=== PATIENT | male | born 1975 | race Caucasian/White ===

== ENCOUNTER → 2020-05-23 02:45 | Outpatient (CLI) | payer BC, SELFPAY ==
[2020-05-23 21:05] LABS: SARS-CoV-2 RNA PCR Negative
== END ==
PROVIDERS: PCP Internal Medicine; Visit Provider Internal Medicine Gastroenterology
DX: Z01.812 Encounter for preprocedural laboratory examination (principal); Z20.822 Contact with and (suspected) exposure to COVID-19
CPT/HCPCS: C9803; U0003; U0005

== ENCOUNTER 2020-05-26 01:15 | Day surgery (SDC) | payer BC, SELFPAY ==
[2020-05-10 13:21] VITALS: BMI 31.6
[2020-05-26 06:47] VITALS: BP 150/103; PULSE 89; RESP 16; TEMP 36.2; O2SAT 100; BMI 33.6
[2020-05-26] MEDS: LACTATED RINGERS 1,000 ML 150 ML IV CONT (07:07)
[2020-05-26 07:08] LABS: Glucose Point of Care 120 (65-105)
--- NOTE | 2020-05-26 07:17 | PM.HPGS ---
History of Present Illness History of Present Illness Consent: Risks, benefits, and alternatives have been discussed and questions answered. Patient agrees to proceed with procedure. Chief complaint: GERD Narrative: Jitendra Ha is a 44 year old male he denies dysphagia but sometimes shortly after eating he will began coughing as though something had gone down the wrong way. at times he may be taking a drink of water and began coughing. He describes the cough is deep. He does not usually regurgitate food when this happens. This happens more often during the day than at night. He does not wake up choking. Several years ago he had an EGD and was told that his symptoms were due to blood pressure medication. However changes in his medication has not helped. He recently increased pantoprazole to twice a day but without any benefit. Review of Systems Review of Systems: All systems reviewed & are unremarkable except as noted in HPI and below PMFSH Past Medical History Medical History Diabetes Hypertension Family History Family History Other Diabetes mellitus Family history of arthritis Family history of malignant neoplasm Hypertension Social History Social History Smoking status: Never smoker Smoking end date: 03/11/02 Alcohol intake: current Substance use: never Substance use type: does not use Living arrangements: with family Gender identity (if verbalized by the patient): Male Spiritual care concerns: No Meds Home Medications and Allergies Home Medications Medication Instructions Recorded Confirmed Type amlodipine 5 mg tablet 5 mg PO BID 03/28/20 05/10/20 History glimepiride 2 mg tablet 2 mg PO BID tablet 03/28/20 05/10/20 History metformin 1,000 mg tablet 1,000 mg PO BID 03/28/20 05/10/20 History metoprolol succinate 50 mg 50 mg PO BID 03/28/20 05/26/20 History tablet,extended release 24 hr olmesartan 40 mg tablet 40 mg PO DAILY 03/28/20 05/10/20 History insulin detemir U-100 [Levemir 42 unit SUBCUT DAILY 05/10/20 05/10/20 History FlexTouch U-100 Insuln] pantoprazole [Protonix] 40 mg PO BID 05/10/20 05/10/20 History Allergies Allergy/AdvReac Type Severity Reaction Status Date / Time naproxen [From Aleve] Allergy Mild Rash Verified 05/26/20 06:46 Vital Signs Vital Signs - 24 hr 05/26/20 06:47 Temperature 36.2 C L Pulse Rate 89 Respiratory Rate 16 Blood Pressure 150/103 H Pulse Oximetry 100 Exam Const: General: alert Orientation/consciousness: patient oriented x3 Resp: Auscultation: clear to auscultation bilaterally Cardio: Rhythm: regular rhythm GI: GI Palp: Yes Soft to palpation and No Tenderness to palpation present (GI) Neuro: General: patient oriented x3 Assessment and Plan Assessment and plan (1) Gastroesophageal reflux disease: Code(s): K21.9 - Gastro-esophageal reflux disease without esophagitis Status: Acute Assessment and Plan: EGD with possible biopsy or dilatation or cautery.
--- NOTE | 2020-05-26 07:40 | WPDANESEPPF ---
Anes - Initial Pre Proc Eval Procedure: Operation Date: 05/26/20 08:00 Proposed Procedures p Esophagogastroduodenoscopy - Ok Martinez MD Date/Time: 05/26/20 07:40 Surgeon: Ok Martinez MD Pre Op Diagnosis: GERD Patient Data Age: 44 Gender: M Height: 5 ft 5 in Weight: 91.7 kg Last Vital Signs Temp 97.1 F L 05/26/20 06:47 Pulse 89 05/26/20 06:47 Resp 16 05/26/20 06:47 BP 150/103 H 05/26/20 06:47 Pulse Ox 100 05/26/20 06:47 Allergies Allergy/AdvReac Type Severity Reaction Status Date / Time naproxen [From Aleve] Allergy Mild Rash Verified 05/26/20 06:46 Home Medications Medication Instructions Recorded Confirmed Type amlodipine 5 mg tablet 5 mg PO BID 03/28/20 05/10/20 History glimepiride 2 mg tablet 2 mg PO BID tablet 03/28/20 05/10/20 History metformin 1,000 mg tablet 1,000 mg PO BID 03/28/20 05/10/20 History metoprolol succinate 50 mg 50 mg PO BID 03/28/20 05/26/20 History tablet,extended release 24 hr olmesartan 40 mg tablet 40 mg PO DAILY 03/28/20 05/10/20 History insulin detemir U-100 [Levemir 42 unit SUBCUT DAILY 05/10/20 05/10/20 History FlexTouch U-100 Insuln] pantoprazole [Protonix] 40 mg PO BID 05/10/20 05/10/20 History Laboratory Tests 05/26/20 06:58 POC Capillary Glucose 120 mg/dl H mg/dl (65-105) Patient hx anesthesia problems: none Family hx anesthesia problems: none PMFSH Past Medical History Medical History (Updated 05/26/20 @ 07:35 by Herman Escobar MD) Arthritis Diabetes Gastroesophageal reflux disease Hypertension Family History Family History Other Diabetes mellitus Family history of arthritis Family history of malignant neoplasm Hypertension Social History Social History Smoking status: Never smoker Smoking end date: 03/11/02 Alcohol intake: current Substance use: never Substance use type: does not use Living arrangements: with family Gender identity (if verbalized by the patient): Male Spiritual care concerns: No Anes - Eval Final PreProcedure Day of Procedure 05/26/20 07:40 Patient weight: overweight Heart: regular rate and rhythm Lungs: clear to auscultation Airway: Mallampati scale class III Neurological: alert and oriented Last oral intake: >/= 8 hours ASA classification: III Emergent: no Anesthetic plan: proceed Anesthesia type and monitoring: general GIVS and standard monitoring Informed Consent: The patient's anesthetic plan and its attendant risks and benefits were discussed with the patient/family/POA. Questions were solicited and answers provided to the satisfaction of the patient/family/POA.
[2020-05-26 08:04] VITALS: BP 136/82; PULSE 85; RESP 10; O2SAT 99
[2020-05-26 08:14] VITALS: BP 123/83; PULSE 85; RESP 18; O2SAT 99
[2020-05-26 08:18] LABS: Glucose Point of Care 152 (65-105)
[2020-05-26 08:24] VITALS: BP 128/86; PULSE 85; RESP 18; O2SAT 99
== END 2020-05-26 09:00 | disposition home or self-care (01) ==
PROVIDERS: PCP Internal Medicine; Visit Provider Internal Medicine Gastroenterology
PROC: 0DJ08ZZ Inspection of Upper Intestinal Tract, Via Natural or Artificial Opening Endoscopic (ICD-10-PCS; CPT 43235; principal; 2020-05-26 08:00)
DX: K21.9 Gastro-esophageal reflux disease without esophagitis (principal); R13.10 Dysphagia, unspecified; R05 Cough; E11.9 Type 2 diabetes mellitus without complications; I10 Essential (primary) hypertension; Z79.84 Long term (current) use of oral hypoglycemic drugs; Z79.4 Long term (current) use of insulin
CPT/HCPCS: 43235; 82948; J2704; J7120

== ENCOUNTER 2021-06-05 11:28 | Outpatient (CLI) | payer BC, SELFPAY ==
[2021-06-05 13:27] LABS: Alanine Aminotransferase 24 U/L (4-50); Albumin Level 4.5 g/dL (3.5-5.1); Alkaline Phosphatase 83 U/L (38-126); Anion Gap 9 mmol/L (8-16); Aspartate Amino Transferase 29 U/L (17-59); Bilirubin,Total 0.4 mg/dL (0.2-1.3); Blood Urea Nitrogen 25 mg/dL (9-20); Calcium 9.3 mg/dL (8.4-10.2); Carbon Dioxide 28 mmol/L (22-30); Chloride 102 mmol/L (98-107); Cholesterol 158 mg/dL (0-200); Estimated Glomerular Filt Rate > 60; Glucose 132 mg/dL (65-110); HDL Direct 35 mg/dL; Sodium 139 mmol/L (137-145); Triglycerides 252 mg/dL (<150)
[2021-06-05 13:30] LABS: Hemoglobin A1C 5.8 % (<5.7)
[2021-06-05 13:35] LABS: Creatinine Urine 82.4 mg/dL
[2021-06-05 13:38] LABS: LDL Cholesterol Direct 68 mg/dL
[2021-06-05 13:43] LABS: Free T4 Free Thyroxine 1.12 ng/mL (0.78-2.19); Vitamin D 25 Hydroxy 28.6 ng/mL
[2021-06-05 13:53] LABS: MALB Creatinine Ratio 280.1 mg/g (0-30); Microalbumin Urine Random 230.8 mg/L (0-16.7)
== END 2021-06-05 11:29 | disposition home or self-care (01) ==
LOC: ANHWCLAB 11:33
PROVIDERS: PCP Internal Medicine; Visit Provider Nurse Practitioner Family
DX: E11.9 Type 2 diabetes mellitus without complications (principal); E66.9 Obesity, unspecified; I10 Essential (primary) hypertension; E55.9 Vitamin D deficiency, unspecified
CPT/HCPCS: 36415; 80053; 80061; 82043; 82306; 82607; 83036; 84439; 84443

== ENCOUNTER 2022-03-19 09:15 | Outpatient (CLI) | payer BC, SELFPAY ==
[2022-03-19 17:21] LABS: Creatinine Urine 67.2 mg/dL
[2022-03-19 17:26] LABS: MALB Creatinine Ratio 106.4 mg/g (0-30); Microalbumin Urine Random 71.5 mg/L (0-16.7)
[2022-03-19 18:34] LABS: Alanine Aminotransferase 18 U/L (6-50); Albumin Level 4.2 g/dL (3.5-5.1); Alkaline Phosphatase 84 U/L (38-126); Anion Gap 7 mmol/L (8-16); Aspartate Amino Transferase 78 U/L (17-59); Bilirubin,Total 0.5 mg/dL (0.2-1.3); Blood Urea Nitrogen 27 mg/dL (9-20); Calcium 8.9 mg/dL (8.4-10.2); Carbon Dioxide 32 mmol/L (22-30); Chloride 103 mmol/L (98-107); Cholesterol 95 mg/dL (0-200); Estimated Glomerular Filt Rate > 60; Glucose 115 mg/dL (65-110); HDL Direct 38 mg/dL; Potassium 4.2 mmol/L (3.4-5.0); Sodium 142 mmol/L (137-145); Triglycerides 84 mg/dL (<150)
[2022-03-19 18:46] LABS: LDL Cholesterol Direct 35 mg/dL
== END 2022-03-19 09:16 | disposition home or self-care (01) ==
LOC: ANHWCLAB 09:16
PROVIDERS: PCP Internal Medicine; Visit Provider Internal Medicine Endocrinology, Diabetes & Metabolism
DX: E11.29 Type 2 diabetes mellitus with other diabetic kidney complication (principal); E11.65 Type 2 diabetes mellitus with hyperglycemia; R80.9 Proteinuria, unspecified; Z71.3 Dietary counseling and surveillance
CPT/HCPCS: 36415; 80053; 80061; 82043; 82607; 84443

== ENCOUNTER 2023-03-26 08:48 | Emergency (ER) | payer BC, SELFPAY ==
--- NOTE | ~2023-03-26 | CT_ITS ---
CT of the Abdomen and Pelvis: Indication: Abdominal pain Technique: 2.5 mm axial scans were obtained through the abdomen and pelvis following intravenous adm inistration of 100 cc of Omnipaque 350. Dose reduction technique was used on this scan by utilizing a utomated exposure control and iterative reconstruction technique. The dose-length product (DLP) was 4 12.04 mGy-cm. Findings: Scans through the lung bases are unremarkable. The liver, spleen, pancreas, gallbladder, adrenals and kidneys are within normal limits. There are at herosclerotic calcifications of the aorta. No lymphadenopathy. No bowel obstruction or bowel wall thickening. There is no evidence to suggest acute appendicitis. Images through the pelvis were performed. Urinary bladder unremarkable. Prostate gland mildly enlarge d. No ascites. Chronic T11 compression deformity present. Impression: No acute abnormality. Chronic T11 compression deformity. Reviewed, dictated and finalized at [facility]. [employer] Impression: No acute abnormality. Chronic T11 compression deformity.
[2023-03-26 08:51] VITALS: BP 168/98; PULSE 126; RESP 20; TEMP 36.7; O2SAT 100
[2023-03-26 09:40] VITALS: BP 163/92; PULSE 124
[2023-03-26 09:40] LABS: Basophils Absolute Auto 0.1 K/mm3 (0.0-0.1); Basophils Percent Auto 0.6 % (0.2-1.2); Eosinophils Percent Auto 0.2 % (0-4.4); Hematocrit 49.8 % (42.0-52.0); Hemoglobin 16.8 g/dL (14.0-18.0); Immature Granulocyte Absolute 0.22 K/mm3 (0.00-0.031); Immature Granulocyte Percent A 1.3 % (0-0.5); Lymphocytes Absolute Auto 0.66 K/mm3 (0.9-3.2); Lymphocytes Percent Auto 3.8 % (18.3-44.2); Mean Corpuscular HGB Conc 33.7 g/dl (32-36); Mean Corpuscular Hemoglobin 27.1 pg (26-34); Mean Corpuscular Volume 80.3 fl (80-100); Monocytes Absolute Auto 0.7 K/mm3 (0.1-0.6); Monocytes Percent Auto 4.2 % (2.6-8.5); Neutrophils Absolute Auto 15.6 K/mm3 (1.3-6.7); Neutrophils Percent Auto 89.9 % (45.5-73.1); Platelet Count Result 243 k/mm3 (150-375); Red Cell Distribution Width 13.8 % (11.5-14.5); White Blood Count 17.3 K/mm3 (4.5-10.0)
[2023-03-26 09:42] VITALS: BP 156/102; PULSE 128
[2023-03-26 09:43] VITALS: BP 161/97; PULSE 130
[2023-03-26 09:50] LABS: Alanine Aminotransferase 27 U/L (6-50); Albumin Level 4.4 g/dL (3.5-5.1); Alkaline Phosphatase 76 U/L (38-126); Anion Gap 16 mmol/L (8-16); Aspartate Amino Transferase 25 U/L (17-59); Blood Urea Nitrogen 27 mg/dL (9-20); Carbon Dioxide 25 mmol/L (22-30); Chloride 96 mmol/L (98-107); Estimated CRCL calculation 72 ml/min; Estimated Glomerular Filt Rate > 60; Glucose 162 mg/dL (65-110); Lipase 77 U/L (23-300); Potassium 4.3 mmol/L (3.4-5.0); Sodium 137 mmol/L (137-145)
[2023-03-26] MEDS: ONDANSETRON INJ 4 MG/2 ML VIAL IV PUSH (09:59)
[2023-03-26] MEDS: SODIUM CHLORIDE 0.9% IV 1,000 ML 999 ML IV CONT ×3 (09:59→11:31)
--- NOTE | 2023-03-26 10:11 | ED.GENADULT ---
HPI - General Adult General Chief complaint: Nausea/Vomiting/Diarrhea <SHORTY Silvestre Last Filed: 03/26/23 14:59> Stated complaint: vomitting <SHORTY Silvestre Last Filed: 03/26/23 14:59> Time Seen by Provider: 03/26/23 09:30 <SHORTY Silvestre Last Filed: 03/26/23 14:59> Source: patient <SHORTY Silvestre Last Filed: 03/26/23 14:59> Mode of arrival: ambulatory <SHORTY Silvestre Last Filed: 03/26/23 14:59> Limitations: no limitations <SHORTY Silvestre Filed: 03/26/23 14:59> History of Present Illness HPI narrative: This is a 47-year-old male with PMH of type 2 diabetes who presents to the ED with chief complaint of nausea and vomiting beginning yesterday evening prior to getting off work. Reports that he started to feel very nauseous at work and had several episodes of vomiting. Reports that he continued to vomit through the night and he feels very dehydrated. Denies any diarrhea. Reports lower abdominal pain that began after the vomiting. Reports his sugars have been a little high lately due to recent steroid shot urgent care for sore throat. Denies fevers, chills, chest pain, shortness of breath, urinary problems. Denies any GI bleeding. <SHORTY Silvestre Last Filed: 03/26/23 14:59> Related Data Home medications: Home Medications Medication Instructions Recorded Confirmed amlodipine 5 mg tablet 5 mg PO DAILY 11/17/21 03/27/23 metoprolol succinate 50 mg 50 mg PO DAILY 11/17/21 03/27/23 tablet,extended release 24 hr <SHORTY Silvestre Last Filed: 03/26/23 14:59> Allergies/adverse reactions: Allergies Allergy/AdvReac Type Severity Reaction Status Date / Time naproxen [From Aleve] Allergy Mild Rash Verified 03/27/23 13:00 <SHORTY Silvestre Last Filed: 03/26/23 14:59> Review of Systems Review of Systems: All systems as dictated in HPI <Loi Villalobos PA-C - Last Filed: 03/26/23 14:59> PMFSH Past Medical History Medical History: Medical History Acute sinusitis Arthritis Body mass index (BMI) 23 or greater (04/11/18) Gastroesophageal reflux disease Hypertension Microalbuminuria due to type 2 diabetes mellitus Post-traumatic osteoarthritis of left shoulder Rotator cuff tear, left SK (seborrheic keratosis) Sore throat Type 2 diabetes mellitus URI (upper respiratory infection) Vitamin D insufficiency <Loi Villalobos PA-C - Last Filed: 03/26/23 14:59> Surgical History Surgical History: Surgical History History of eye surgery x4 <Loi Villalobos PA-C - Last Filed: 03/26/23 14:59> Family History Family History: Family History Father Diabetes mellitus Cerebrovascular accident Heart disease Mother Hypertension Other Family history of arthritis Family history of malignant neoplasm <Loi Villalobos PA-C - Last Filed: 03/26/23 14:59> Social History Social History: Social History Smoking status: Never smoker Smoking end date: 03/11/02 Alcohol intake: current Drinks per week: 1 Alcohol use details: occasional Substance use: never Lack of Transportation: No Lack of Food: Never True Current Housing: I Have Housing Concerned About Future Housing: No Difficulty Paying Gas/Electric Bills: No Difficulty Paying for Meds: No Currently Unemployed: No Education: Associate Degree Difficulty w/ Childcare or Family Care: No Living arrangements: with family Occupation/Education: occupation Gender identity (if verbalized by the patient): Male Spiritual care concerns: No <Loi Villalobos PA-C - Last Filed: 03/26/23 14:59> Exam Narrative: GENERAL: Well-appearing, well-nourished, and in no acute distress.
[2023-03-26 10:35] LABS: Appearance Urine Clear (Clear); Bacteria Urine None Seen /hpf; Bilirubin Urine Negative (Negative); Blood Urine Negative (Negative); Color Urine Yellow (Yellow); Glucose Urine UA 3+ mg/dL (Negative); Ketones Urine 3+ mg/dL (Negative); Leukocyte Esterase Ur Negative LEU/UL (Negative); Nitrate Urine Negative (Negative); Non Pathogenic Casts 0-2; Protein Urine Trace mg/dL (Negative); RBC Urine 0-2 /hpf (0-2); Squamous Epithelial Cell Urine None seen /hpf (Few); Urobilinogen Urine 0.2 mg/dL (<2.0); WBC Urine 0-5 /hpf; pH Urine 5.5 (5.0-9.0)
[2023-03-26 10:36] VITALS: BP 166/93; PULSE 121; RESP 17; O2SAT 98
[2023-03-26 10:42] LABS: Add Urine Microscopic? YES; Specific Grav Ur 1.057 (1.001-1.035)
[2023-03-26 12:55] VITALS: BP 179/100; PULSE 118; RESP 20; O2SAT 99
== END 2023-03-26 12:56 | disposition home or self-care (01) ==
PROVIDERS: Emergency Medicine; Emergency Provider Physician Assistant; PCP Nurse Practitioner Family
DX: K52.9 Noninfective gastroenteritis and colitis, unspecified (principal); I10 Essential (primary) hypertension; E11.9 Type 2 diabetes mellitus without complications; K21.9 Gastro-esophageal reflux disease without esophagitis; M19.90 Unspecified osteoarthritis, unspecified site; M19.112 Post-traumatic osteoarthritis, left shoulder; Z87.891 Personal history of nicotine dependence; Z79.85 Long-term (current) use of injectable non-insulin antidiabetic drugs; Z79.84 Long term (current) use of oral hypoglycemic drugs
CPT/HCPCS: 36415; 74177; 80053; 81001; 83690; 85025; 96361; 96374; 99284; J2405; J7030; Q9967

== ENCOUNTER 2023-09-25 16:35 | Emergency (ER) | payer BC, SELFPAY ==
[2023-09-25 16:35] VITALS: BP 171/92; PULSE 96; RESP 16; TEMP 36.6; O2SAT 100
[2023-09-25 16:41] LABS: Glucose Point of Care 118 mg/dl (65-105)
--- NOTE | 2023-09-25 16:42 | ED.RECABL ---
HPI - Recheck/Abnormal Lab/Rx General Chief Complaint: Recheck/Abnormal Lab/Rx Stated Complaint: low blood sugar Time Seen by Provider: 09/25/23 16:41 History of Present Illness HPI narrative: 47-year-old he male history of diabetes, hypertension presents to the emergency room for evaluation of hypoglycemia. Patient states his Dexcom reading given the results of 45 prior to arrival. Patient was asymptomatic at that time. Blood sugar on arrival to emergency room was 118. Patient denies lightheadedness, dizziness, somnolence, nausea vomiting. Related Data Home Medications Medication Instructions Recorded Confirmed amlodipine 5 mg tablet 5 mg PO DAILY 11/17/21 09/09/23 metoprolol succinate 50 mg 50 mg PO DAILY 11/17/21 09/09/23 tablet,extended release 24 hr Allergies Allergy/AdvReac Type Severity Reaction Status Date / Time naproxen [From Aleve] Allergy Mild Rash Verified 09/09/23 13:08 Review of Systems Review of Systems: ROS unremarkable except for noted in HPI PMFSH Past Medical History Medical History Arthritis Body mass index (BMI) 23 or greater (04/11/18) Diabetic retinopathy Gastroesophageal reflux disease Hypertension Microalbuminuria due to type 2 diabetes mellitus Post-traumatic osteoarthritis of left shoulder Rotator cuff tear, left SK (seborrheic keratosis) Type 2 diabetes mellitus Vitamin D insufficiency Surgical History Surgical History History of eye surgery x4 Family History Family History Father Diabetes mellitus Cerebrovascular accident Heart disease Mother Hypertension Other Family history of arthritis Family history of malignant neoplasm Social History Social History Smoking status: Never smoker Smoking end date: 03/11/02 Alcohol intake: current Drinks per week: 1 Alcohol use details: occasional Substance use: never Lack of Transportation: No Lack of Food: Never True Current Housing: I Have Housing Concerned About Future Housing: No Difficulty Paying Gas/Electric Bills: No Difficulty Paying for Meds: No Currently Unemployed: No Education: Associate Degree Difficulty w/ Childcare or Family Care: No Living arrangements: with family Occupation/Education: occupation Gender identity (if verbalized by the patient): Male Spiritual care concerns: No Exam Narrative: GENERAL: Well-appearing, well-nourished, no physical limitations, and in no acute distress. HEAD: Normocephalic, atraumatic. EYES: Conjunctivae normal, PERRLA and EOMI. CHEST: Clear to auscultation. No respiratory distress. No wheezes rales or rhonchi. HEART: Regular rate and rhythm. No murmur heard. Normal peripheral pulses. ABDOMEN: Soft, nontender, nondistended, normal active bowel sounds. EXTREMITIES: Normal range of motion. No edema. No clubbing or cyanosis SKIN: Warm, dry, no rash. No noted wounds NEURO: No focal deficits. Alert and oriented x3. MAEW. CN's II-XI intact bilaterally, normal gait PSYCH: Cooperative. Normal mood and affect. Course Vital Signs Vital signs: Vital Signs Temperature 36.6 C 09/25/23 16:35 Pulse Rate 96 09/25/23 16:35 Respiratory Rate 16 09/25/23 16:35 Blood Pressure 171/92 H 09/25/23 16:35 Pulse Oximetry 100 09/25/23 16:35 Oxygen Delivery Room Air 09/25/23 16:35 Temperature 36.6 C 09/25/23 16:35 Pulse Rate 96 09/25/23 16:35 Respiratory Rate 16 09/25/23 16:35 Blood Pressure 171/92 H 09/25/23 16:35 Pulse Oximetry 100 09/25/23 16:35 Oxygen Delivery Room Air 09/25/23 16:35 MDM - Recheck/Abnormal Lab/Rx Lab Data 09/25/23 16:54 Labs: Lab Results 09/25/23 09/25/23 Range/Units 16:38 16:54 Sodium 135 L (137-145) mmol/L Po
[2023-09-25 17:08] LABS: Anion Gap 10 mmol/L (4-12); Blood Urea Nitrogen 19 mg/dL (9-20); Carbon Dioxide 27 mmol/L (22-30); Chloride 98 mmol/L (98-107); Estimated CRCL calculation 72 ml/min; Estimated Glomerular Filt Rate > 60; Glucose 135 mg/dL (65-110); Potassium 4.4 mmol/L (3.4-5.0); Sodium 135 mmol/L (137-145)
[2023-09-25 17:18] VITALS: BP 164/80; PULSE 74; RESP 16; TEMP 36.8; O2SAT 100
== END 2023-09-25 17:20 | disposition home or self-care (01) ==
PROVIDERS: Emergency Provider Nurse Practitioner Family; PCP Physician Assistant Medical
DX: E11.649 Type 2 diabetes mellitus with hypoglycemia without coma (principal); E11.319 Type 2 diabetes mellitus with unspecified diabetic retinopathy without macular edema; E11.69 Type 2 diabetes mellitus with other specified complication; R80.9 Proteinuria, unspecified; M19.90 Unspecified osteoarthritis, unspecified site; Z87.891 Personal history of nicotine dependence; Z79.84 Long term (current) use of oral hypoglycemic drugs; Z79.85 Long-term (current) use of injectable non-insulin antidiabetic drugs; Z79.899 Other long term (current) drug therapy
CPT/HCPCS: 36415; 80048; 82948; 99283

== ENCOUNTER 2024-05-11 09:56 | Outpatient (CLI) | payer BC, SELFPAY | END 2024-05-11 09:57 | disposition home or self-care (01) | LOC: GOSHIMG 09:56 | PROVIDERS: PCP Orthopaedic Surgery; Visit Provider Orthopaedic Surgery | DX: S43.015A Anterior dislocation of left humerus, initial encounter (principal); S43.432A Superior glenoid labrum lesion of left shoulder, initial encounter; X58.XXXA Exposure to other specified factors, initial encounter | CPT/HCPCS: 73221 ==

== ENCOUNTER 2024-07-01 09:21 | Outpatient (CLI) | payer BC, SELFPAY ==
--- NOTE | ~2024-07-01 | US_ITS ---
Renal-Bladder ultrasound Clinical History: Diabetes Technique: Real-time sonographic imaging of the kidneys and urinary bladder was performed. Findings: The right kidney measures 9.8 cm in length and the left kidney measures 10.6 cm. There is n o hydronephrosis or renal calculus identified. Renal cortical echogenicity is within normal limits. N o renal mass lesion is identified. The urinary bladder is moderately distended at the time of this exam. No intraluminal echoes are iden tified. No abnormal wall thickening is seen. Prostate gland enlarged. Impression: Unremarkable ultrasound of the kidneys and urinary bladder. Enlarged prostate gland. Reviewed, dictated and finalized at location . Impression: Unremarkable ultrasound of the kidneys and urinary bladder. Enlarged prostate gland.
== END 2024-07-01 09:22 | disposition home or self-care (01) ==
LOC: GOSHIMG 09:21
PROVIDERS: PCP Internal Medicine Nephrology; Visit Provider Internal Medicine Nephrology
DX: E11.29 Type 2 diabetes mellitus with other diabetic kidney complication (principal); R80.9 Proteinuria, unspecified; I10 Essential (primary) hypertension; N40.0 Benign prostatic hyperplasia without lower urinary tract symptoms
CPT/HCPCS: 76775